=== PATIENT | female | born 1955 | race Two or more races ===

== ENCOUNTER 2019-02-22 11:58 | Emergency (ER) | payer SELFPAY ==
[~2019-02-22] VITALS: Ht 157.5 cm; Wt 50.0 kg
[2019-02-22] MEDS ORDERED: KETOROLAC 60MG/2ML VIAL IM STA (13:15)
[2019-02-22 16:25] VITALS: BP 134/84
== END 2019-02-22 16:34 | disposition home or self-care (01) ==
LOC: ER 11:58
DX: G89.29 Other chronic pain (principal); K08.89 Other specified disorders of teeth and supporting structures; I10 Essential (primary) hypertension; Z87.440 Personal history of urinary (tract) infections; Z96.659 Presence of unspecified artificial knee joint
CPT/HCPCS: 96372; 99283; J1885